=== PATIENT | female | born 1945 | race Caucasian/White ===

== ENCOUNTER → 2017-11-18 | Outpatient (CLI) | payer OTHER | END | disposition home or self-care (01) | LOC: OIH 13:11 | PROVIDERS: ATTEND Physician Assistant Medical | DX: Z13.6 Encounter for screening for cardiovascular disorders (principal) | CPT/HCPCS: 75571 ==

== ENCOUNTER → 2019-05-16 | Outpatient (CLI) | payer OTHER | END | disposition home or self-care (01) | LOC: RAH 12:38 | PROVIDERS: ATTEND Internal Medicine Critical Care Medicine | DX: Z13.6 Encounter for screening for cardiovascular disorders (principal); J84.10 Pulmonary fibrosis, unspecified | CPT/HCPCS: 75571 ==

== ENCOUNTER → 2019-06-23 | Outpatient (CLI) | payer MEDICARE, OTHER ==
[~2019-06-23] MED LIST: IOHEXOL-350 75 ML VIAL IV ONE
== END | disposition home or self-care (01) ==
LOC: RAH 13:33
PROVIDERS: ATTEND Internal Medicine Cardiovascular Disease
DX: R91.1 Solitary pulmonary nodule (principal); J98.4 Other disorders of lung
CPT/HCPCS: 71270; Q9967

== ENCOUNTER → 2019-07-07 | Outpatient (CLI) | payer MEDICARE, OTHER ==
[~2019-07-07] VITALS: Ht 165.1 cm; Wt 59.0 kg
[~2019-07-07] MED LIST changes: -IOHEXOL-350 75 ML VIAL IV ONE; +REGADENOSON 0.4 MG/5 ML PF SYG IVP SCH
== END | disposition home or self-care (01) ==
LOC: SHCH 08:06
PROVIDERS: ATTEND Internal Medicine Cardiovascular Disease
DX: I25.89 Other forms of chronic ischemic heart disease (principal); I25.10 Atherosclerotic heart disease of native coronary artery without angina pectoris
CPT/HCPCS: 78452; 93017; 96374; A9500 ×2; J2785

== ENCOUNTER → 2019-07-23 | Outpatient (CLI) | payer MEDICARE, OTHER | END | disposition home or self-care (01) | LOC: SHCH 15:30 | PROVIDERS: ATTEND Internal Medicine Cardiovascular Disease | DX: I25.10 Atherosclerotic heart disease of native coronary artery without angina pectoris (principal) | CPT/HCPCS: 93306 ==

== ENCOUNTER → 2020-10-30 | Outpatient (CLI) | payer OTHER | END | disposition home or self-care (01) | LOC: OIH 17:33 | PROVIDERS: ATTEND Internal Medicine Critical Care Medicine | DX: Z13.6 Encounter for screening for cardiovascular disorders (principal); I51.5 Myocardial degeneration | CPT/HCPCS: 75571 ==